=== PATIENT | female | born 1975 | race Caucasian/White ===

== ENCOUNTER → 2016-08-18 | Outpatient (CLI) | payer SELFPAY ==
--- NOTE | 2016-08-19 09:22 | DI ---
History: Pelvic pain. Left-sided ovarian cyst. Prior study: 08/06/16. Study was performed using a 13 MHz transducer transvaginal. Findings: The larger of the 2 cysts seen on last month's examination has subsided. It appears that th e smaller of the 2 persists and is unchanged. There are no significant internal echoes nodules or flu id fluid levels. No free fluid is present. There is good perfusion of the left ovary identified. This is the only structure evaluated on today's examination. Current dimension is 3.3 x 2.6 x 2.4 cm. Impression: Left ovarian cyst persists without interval change. This was the smaller of the 2 seen on last month's examination. There still good perfusion of the left ovary. The larger of the 2 cysts goodman s disappeared
== END ==
LOC: US 10:00
PROVIDERS: ATTEND Obstetrics & Gynecology
DX: R10.2 Pelvic and perineal pain (principal); N83.202 Unspecified ovarian cyst, left side; Z72.0 Tobacco use
CPT/HCPCS: 76856

== ENCOUNTER → 2016-09-30 | Outpatient (CLI) | payer SELFPAY ==
--- NOTE | 2016-09-30 19:17 | DI ---
US PELVIC-TRANSVAGINAL,09/30/2016 9:13 AM: Clinical History: Left ovarian cyst. Previous Exam: August 06, 2016 Findings: Multiple grayscale and color Doppler sonographic images are obtained through the pelvis demonstrates a normal-appearing left ovary measuring 4.5 x 3.4 x 3.4 cm with normal Doppler flow. The right ovary was not seen. There is an anechoic cyst within the left ovary measuring 3.1 x 2.6 x 3.1 cm. This is decreased in si ze since the prior exam. Impression: Decreasing size of a left simple ovarian cyst. This is consistent with a benign process.
== END ==
LOC: US 09:12
PROVIDERS: ATTEND Obstetrics & Gynecology
DX: N83.202 Unspecified ovarian cyst, left side (principal)
CPT/HCPCS: 76830